=== PATIENT | female | born 1985 | race Caucasian/White ===

== ENCOUNTER → 2017-12-27 | Outpatient (CLI) | payer OTHER ==
[2017-12-27 15:04] VITALS: BP 141/85; PULSE 79; RESP 16; TEMP 98; BMI 43.6
[2017-12-27 16:12] LABS: HCT 36.9 % (34.0-46.0); HGB 12.5 gm/dL (11.4-16.0); MCH 30.1 pg (25.0-35.0); MCHC 33.8 g/dL (31.0-37.0); MCV 89.2 fL (80.0-100.0); Mean Platelet Volume 6.9; Platelet Count 372 k/uL (150-450); RBC 4.13 m/uL (3.80-5.40); RDW 13.7 % (11.5-15.5); WBC 14.4 k/uL (3.8-10.6)
[2017-12-27 16:27] LABS: ALT 31 U/L (9-52); AST 20 U/L (14-36); Albumin 4.1 g/dL (3.5-5.0); Alkaline Phosphatase 78 U/L (38-126); Anion Gap 8 mmol/L; Blood Urea Nitrogen 18 mg/dL (7-17); Calcium 9.6 mg/dL (8.4-10.2); Carbon Dioxide 30 mmol/L (22-30); Chloride 103 mmol/L (98-107); Glucose 80 mg/dL (74-99); Potassium 3.9 mmol/L (3.5-5.1); Sodium 141 mmol/L (137-145); Total Bilirubin <0.1 mg/dL (0.2-1.3); Total Protein 6.7 g/dL (6.3-8.2)
[2017-12-28 01:42] LABS: Iron Saturation 17.46 (12.00-45.00)
[2017-12-28 01:50] LABS: Vitamin D 25 Hydroxy 27.8 ng/mL (30.0-100.0)
[2017-12-28 02:20] LABS: Hemoglobin A1C 5.9 % (4.0-6.0)
--- NOTE | 2018-02-07 15:30 | P.HPBAR ---
Bariatric H&P - History & Physicial H&P Date: 12/27/17 History & Physicial: Visit/CC: Initial Visit Patient initial contact: Initial weight: 122.64 kg Initial weight in pounds: 270.38 Height: 5 ft 6 in Initial BMI: 43.6 Last weight: Current weight: 122.64 kg Current weight in pounds: 270.38 Current BMI: 43.6 [place] body weight (based on NIH guidelines): 58.967 kg Excess body weight loss: 0.0% The patient is a 32 year-old F who presents for Bariatric Assessment. This is a 32-year-old female who's had lifetime pros morbid obesity. Patient is requesting sleeve yesterday. She is no severe comorbidities related to morbid obesity. We will over the risks and benefits of sleeve gastrectomy. I discussed with a possible issues with gastric staple line bleeding, scarring or obstruction or perforation. Past Medical History Past Medical History: GERD/Reflux Additional Past Medical History / Comment(s): gall stones History of Any Multi-Drug Resistant Organisms: None Reported Past Surgical History: Tubal Ligation Past Anesthesia/Blood Transfusion Reactions: No Reported Reaction Past Psychological History: Anxiety Smoking Status: Current every day smoker Past Alcohol Use History: None Reported Additional Past Alcohol Use History / Comment(s): 1ppweek for 2 yrs. Past Drug Use History: None Reported - Past Family History Father Family Medical History: Deep Vein Thrombosis (DVT) Surgical - Exam Vital Signs Temp Pulse Resp BP 98 F 79 16 141/85 12/27/17 15:00 12/27/17 15:00 12/27/17 15:00 12/27/17 15:00 - General well developed, no distress - Eyes PERRL - ENT normal pinna - Neck no masses - Respiratory normal expansion - Cardiovascular Rhythm: regular - Abdomen Abdomen: soft, non tender Results - Labs 12/27/17 15:56 12/27/17 15:56 Bariatric Assessment & Plan Plan: Morbid obesity. Patient will be scheduled for EGD to evaluate for gastritis. She'll follow-up in the clinic after this has been performed. Bariatric Checklist Checklist: Plan: Checklist: EGD: 1. Hiatal hernia: 2. H. Pylori: HgbA1c: Vitamin D: Smoking: Current every day smoker Primary care physician referral: Dr David Psychiatry clearance: Cardiology clearance: Sleep study: Diet journal: VTE risk score: VTE risk level: Rehab needs at discharge:
== END | disposition home or self-care (01) ==
LOC: BARWHC3 14:43
PROVIDERS: ATTEND Surgery
DX: E66.01 Morbid (severe) obesity due to excess calories (principal); F17.200 Nicotine dependence, unspecified, uncomplicated; D50.9 Iron deficiency anemia, unspecified; E55.9 Vitamin D deficiency, unspecified; E44.0 Moderate protein-calorie malnutrition; Z68.41 Body mass index [BMI] 40.0-44.9, adult
CPT/HCPCS: 84425; 80053; 82607; 83540; 83550; 84443; 85027; 82306; 83036; 36415; G0463; 99211

== ENCOUNTER → 2017-12-28 | Outpatient (CLI) | payer OTHER | END | disposition home or self-care (01) | LOC: LABWHC1 08:36 | PROVIDERS: ATTEND Surgery | DX: Z01.818 Encounter for other preprocedural examination (principal); D50.9 Iron deficiency anemia, unspecified; E44.0 Moderate protein-calorie malnutrition; E55.9 Vitamin D deficiency, unspecified | CPT/HCPCS: 36415; 93005 ==

== ENCOUNTER 2018-01-26 12:05 | Day surgery (SDC) | payer OTHER ==
[2018-01-20 15:43] VITALS: BMI 42.3
[~2018-01-26 12:05] MED LIST: LACTATED RINGERS 1,000 ML IV SCH
[2018-01-26 12:29] VITALS: TEMP 97
[2018-01-26] MEDS ORDERED: LIDOCAINE 1% 20 ML VIAL (10MG/ML) FOR IV START INTRADERMA ONE (12:35)
[2018-01-26] MEDS ORDERED: PROPOFOL 10 MG/ML 20 ML VIAL IV ONE (13:03)
--- NOTE | 2018-01-26 13:09 | P.GSHP ---
History of Present Illness H&P Date: 01/26/18 Chief Complaint: GERD, morbid obesity This is a 32-year-old female who's had complaints of GERD. Her BMI is 42. Patient will stay for EGD. She is currently undergoing workup for sleeve gastrectomy. Past Medical History Past Medical History: GERD/Reflux, Hypertension Additional Past Medical History / Comment(s): MIGRAINE HEADACHE, History of Any Multi-Drug Resistant Organisms: None Reported Past Surgical History: Section, Cholecystectomy, Tubal Ligation Additional Past Surgical History / Comment(s): D&C, Past Anesthesia/Blood Transfusion Reactions: No Reported Reaction Smoking Status: Current every day smoker - Past Family History Father Family Medical History: Deep Vein Thrombosis (DVT) Medications and Allergies Home Medications Medication Instructions Recorded Confirmed Type Losartan Potassium [Cozaar] 50 mg PO BID 01/20/18 01/26/18 History Omeprazole [PriLOSEC] 40 mg PO BID 01/20/18 01/20/18 History SUMAtriptan SUCCINATE [Imitrex] 50 mg PO BID 01/20/18 01/20/18 History Venlafaxine HCl [Effexor XR] 75 mg PO DAILY 01/20/18 01/20/18 History Allergies Allergy/AdvReac Type Severity Reaction Status Date / Time hydromorphone [From Dilaudid] Allergy Confusion, Verified 01/26/18 12:22 IRRITABLE Surgical - Exam Vital Signs Temp Pulse Resp BP Pulse Ox 97 F L 84 16 143/94 97 01/26/18 12:28 01/26/18 12:28 01/26/18 12:28 01/26/18 12:28 01/26/18 12:28 - General well developed, no distress - Eyes PERRL - ENT normal pinna - Neck no masses - Respiratory normal expansion - Cardiovascular Rhythm: regular - Abdomen Abdomen: soft, non tender Assessment and Plan Assessment: GERD, obesity. We'll perform EGD.
--- NOTE | 2018-01-26 13:21 | P.OP ---
Date of Procedure: 01/26/18 Preoperative Diagnosis: Morbid obesity GERD Postoperative Diagnosis: Antral gastritis Sliding hiatal hernia Esophagitis Procedure(s) Performed: EGD Anesthesia: MAC Surgeon: Jr Wells Pathology: other (Antrum, esophagus) Condition: stable Disposition: PACU Description of Procedure: The patient's placed on the endoscopy table in the lateral position. She received IV sedation. The gastroscope placed oropharynx passed in the esophagus into stomach. Scope was then placed through the pylorus. The first and second portion of the duodenum appeared normal. Scope was then brought back the antrum and this appeared mildly inflamed a biopsies performed. The scope was unretroflexed and the remainder of the stomach appeared normal. There was a small sliding hiatal hernia. The distal esophagus appeared inflamed. A biopsies performed. The proximal esophagus appeared normal. Scope was withdrawn for patient.
[2018-01-26 13:44] VITALS: BP 140/88; PULSE 78; RESP 16
== END 2018-01-26 14:34 | disposition home or self-care (01) ==
LOC: ORWHC2ENDO 12:05
PROVIDERS: ATTEND Surgery
DX: K21.0 Gastro-esophageal reflux disease with esophagitis (principal); K29.70 Gastritis, unspecified, without bleeding; K44.9 Diaphragmatic hernia without obstruction or gangrene; E66.01 Morbid (severe) obesity due to excess calories; F17.200 Nicotine dependence, unspecified, uncomplicated; I10 Essential (primary) hypertension; G43.909 Migraine, unspecified, not intractable, without status migrainosus; Z68.41 Body mass index [BMI] 40.0-44.9, adult; Z88.5 Allergy status to narcotic agent; Z79.899 Other long term (current) drug therapy
CPT/HCPCS: 88305; 43239; J2704

== ENCOUNTER → 2018-02-07 | Outpatient (CLI) | payer OTHER ==
--- NOTE | 2018-02-07 14:41 | P.HPBAR ---
Bariatric H&P - History & Physicial H&P Date: 02/07/18 History & Physicial: Visit/CC: Patient initial contact: Initial weight: 122.64 kg Initial weight in pounds: Height: Initial BMI: Last weight: Current weight: Current weight in pounds: Current BMI: [place] body weight (based on NIH guidelines): Excess body weight loss: The patient is a 32 year-old F who presents for Bariatric Assessment. Patient presents today for presurgical follow-up. She has her psych evaluation pending. She appears to be almost ready to be scheduled for surgery. She had a recent EGD. She has a hiatal hernia and esophagitis. Past Medical History Past Medical History: GERD/Reflux, Hypertension Additional Past Medical History / Comment(s): MIGRAINE HEADACHE, History of Any Multi-Drug Resistant Organisms: None Reported Past Surgical History: Section, Cholecystectomy, Tubal Ligation Additional Past Surgical History / Comment(s): D&C, Past Anesthesia/Blood Transfusion Reactions: No Reported Reaction Smoking Status: Current every day smoker - Past Family History Father Family Medical History: Deep Vein Thrombosis (DVT) Surgical - Exam - General well developed, no distress - Eyes PERRL - ENT normal pinna - Abdomen Abdomen: soft, non tender Bariatric Assessment & Plan Plan: Morbid obesity with severe comorbidities. She'll undergo psychiatric evaluations week. Hopefully she'll be able be scheduled for surgery with the next month. All her questions were answered regarding the sleeve gastrectomy. Bariatric Checklist Checklist: Plan: Checklist: EGD: 1. Hiatal hernia: 2. H. Pylori: HgbA1c: Vitamin D: Smoking: Current every day smoker Primary care physician referral: Dr David Psychiatry clearance: Cardiology clearance: Sleep study: Diet journal: VTE risk score: VTE risk level: Rehab needs at discharge:
--- NOTE | 2018-02-07 14:43 | P.HPBAR ---
Bariatric H&P - History & Physicial H&P Date: 12/27/17 History & Physicial: Visit/CC: Patient initial contact: Initial weight: 122.64 kg Initial weight in pounds: Height: Initial BMI: Last weight: Current weight: Current weight in pounds: Current BMI: [place] body weight (based on NIH guidelines): Excess body weight loss: The patient presents today for preoperative surgical consultation regarding sleeve gastric. She is morbidly obese. Patient will be scheduled for EGD to evaluate GERD symptoms. Past Medical History Past Medical History: GERD/Reflux, Hypertension Additional Past Medical History / Comment(s): MIGRAINE HEADACHE, History of Any Multi-Drug Resistant Organisms: None Reported Past Surgical History: Section, Cholecystectomy, Tubal Ligation Additional Past Surgical History / Comment(s): D&C, Past Anesthesia/Blood Transfusion Reactions: No Reported Reaction Smoking Status: Current every day smoker - Past Family History Father Family Medical History: Deep Vein Thrombosis (DVT) Surgical - Exam - General well developed, no distress - Eyes PERRL - ENT normal pinna - Neck no masses - Respiratory normal expansion - Cardiovascular Rhythm: regular - Abdomen Abdomen: soft, non tender Bariatric Assessment & Plan Plan: Morbid obesity. Patient will be scheduled for EGD. She'll be scheduled for sleeve gastrectomy once she is able to be authorized.. Bariatric Checklist Checklist: Plan: Checklist: EGD: 1. Hiatal hernia: 2. H. Pylori: HgbA1c: Vitamin D: Smoking: Current every day smoker Primary care physician referral: Dr David Psychiatry clearance: Cardiology clearance: Sleep study: Diet journal: VTE risk score: VTE risk level: Rehab needs at discharge:
[2018-02-07 14:47] VITALS: BP 159/104; PULSE 78; RESP 15; TEMP 99; BMI 41.8
== END | disposition home or self-care (01) ==
LOC: BARWHC3 13:17
PROVIDERS: ATTEND Surgery
DX: Z01.818 Encounter for other preprocedural examination (principal); F17.200 Nicotine dependence, unspecified, uncomplicated; E66.01 Morbid (severe) obesity due to excess calories; Z68.41 Body mass index [BMI] 40.0-44.9, adult; Z90.49 Acquired absence of other specified parts of digestive tract; Z98.890 Other specified postprocedural states
CPT/HCPCS: 99211